=== PATIENT | male | born 1970 ===

== ENCOUNTER → 2017-02-08 | Outpatient (CLI) | payer OTHER | LOC: C.LABSPEC 09:54 | PROVIDERS: ATTEND Nurse Practitioner Adult Health | DX: B20 Human immunodeficiency virus [HIV] disease (principal) ==

== ENCOUNTER → 2017-02-24 | Outpatient (CLI) | payer OTHER | LOC: C.LABSPEC 10:43 | PROVIDERS: ATTEND Physician Assistant Medical | DX: R04.2 Hemoptysis (principal) ==

== ENCOUNTER → 2017-02-25 | Outpatient (CLI) | payer OTHER | END | disposition home or self-care (01) | LOC: C.LABSPEC 09:45 | PROVIDERS: ATTEND Physician Assistant Medical | DX: R04.2 Hemoptysis (principal) ==

== ENCOUNTER → 2017-02-26 | Outpatient (CLI) | payer OTHER | END | disposition home or self-care (01) | LOC: C.LABSPEC 11:26 | PROVIDERS: ATTEND Physician Assistant Medical | DX: R04.2 Hemoptysis (principal) ==